=== PATIENT | male | born 1965 | race Caucasian/White ===

== ENCOUNTER 2016-11-09 11:04 | Emergency (ER) | payer MEDICAID ==
--- NOTE | 2016-11-11 16:02 | ER ---
ADMIT: 11/09/2016 RM/LOC: [facility] MR#: [id number] [facility] [address] [place] [id number] EMI MONSON [address] [place] [address] Emergency Room Report SEX: M AGE: 51 : 1965 DATE: 11/09/2016 TIME: 1104 hours. Please refer to my T-sheet for complete H and P. HISTORY OF PRESENT ILLNESS: Briefly, the patient is a 51-year-old who comes in with high blood sugar. He went over to [facility], they said his glucose was above their monitor reading. He said that he has been peeing a lot, drinking a lot, it has been going on for a long time, at least two weeks or longer. He has never really checked his sugars consistently. He does have a history of heart disease and he is a smoker. PHYSICAL EXAMINATION: VITAL SIGNS: Blood pressure 105/77, pulse 90, respirations 18, temp 97.3, sat 92% on room air. GENERAL: No acute distress. HEENT: Grossly normal. Dry mouth. LUNGS: Clear. HEART: Regular. ABDOMEN: Soft, nontender. SKIN: No rash. EMERGENCY DEPARTMENT COURSE: CBC normal. Chemistries normal except sodium 125, glucose 660. Ketones were negative. Urine was negative except greater than 1000 glucose. His venous pH was 7.453. We gave him 2 L of normal saline total, 6 units of subcutaneous regular insulin, some diabetic instructions. He is ready for discharge. ASSESSMENT: 1. New onset diabetes. We rechecked his sugar, it was still 505 but he felt much better. 2. Dehydration. PLAN: Metformin 500 b.i.d., I gave him a script for 60. Glucose training. Follow up with [facility]. Stop smoking. Exercise. Watch his sugars. Phil Hutchinson MD/ siobhan JOB #: [id number] CC: Phil Hutchinson MD, Attending Physician Jose Granados MD, Family Physician . [facility]
== END 2016-11-09 15:30 | disposition home or self-care (01) ==
LOC: ER 11:04
DX: E11.9 Type 2 diabetes mellitus without complications (principal); E86.0 Dehydration; F17.210 Nicotine dependence, cigarettes, uncomplicated; Z79.82 Long term (current) use of aspirin; Z79.899 Other long term (current) drug therapy